=== PATIENT | female | born 1995 | race Caucasian/White ===

== ENCOUNTER 2017-07-17 20:39 | Emergency (ER) | payer MEDICAID, OTHER ==
[~2017-07-17] VITALS: Ht 165.1 cm; Wt 111.5 kg
[~2017-07-17 20:39] MED LIST: BUSP10TA2 PO; IBUP-1542 PO; NITR-58 PO
[2017-07-17 20:48] VITALS: Ht 165.1 cm; Wt 111.5 kg
[2017-07-17] MEDS ORDERED: ONDANSETRON 4 MG INJ IV STA (22:52)
[2017-07-17] MEDS ORDERED: FAMOTIDINE 20 MG TAB PO STA (22:52)
[2017-07-17] MEDS ORDERED: SOD CHLORIDE 0.9% 1,000 ML IV STA (22:52)
[2017-07-17] MEDS ORDERED: ONDANSETRON (ODT) 4 MG TAB ODT STA (23:45)
[2017-07-18] MEDS ORDERED: ONDA-43 PO (00:28)
[2017-07-18] MEDS ORDERED: CEPH-443 PO (00:29)
--- NOTE | 2017-07-18 00:36 | ERD ---
ER Documentation Chief Complaint Chief Complaint AP, N/V DIARRHEA X3 DAYS. HPI This is a 21-year-old female presents to the ER with nausea and nonbilious nonbloody vomiting for the last 3 days. Patient states she had a fever at home , however does not have a fever in the ER. Patient denies any sore throat, cough, cold symptoms. She does admit to some urinary frequency and dysuria. Her last normal menstrual period was July 01, 2017. Patient is sexually active with one partner and uses condoms she is not on control. She denies any possibility of . ROS 12 point review of systems was done, all negative except per HPI. Medications Home Meds Active Scripts Cephalexin* (Keflex*) 500 Mg Capsule, 500 MG PO BID for 7 Days, CAP Prov:WILBUR GARDINER 07/18/17 Ondansetron Hcl* (Zofran*) 4 Mg Tab, 4 MG PO Q4H Y for NAUSEA AND OR VOMITING for 5 Days, TAB Prov:WILBUR GARDINER 07/18/17 Ibuprofen* (Motrin*) 600 Mg Tab, 600 MG PO Q6, #20 TAB Prov:VA DOVER MD 01/17/16 Buspirone Hcl* (Buspirone Hcl*) 10 Mg Tab, 10 MG PO BID for 30 Days, TAB Prov:VA DOVER MD 01/17/16 Nitrofurantoin Monohyd Macrocr* (Macrobid*) 100 Mg Capsr, 100 MG PO BID for 7 Days, CAP Prov:TRINA HAGAN PA-C 10/13/15 Allergies Allergies: Coded Allergies: No Known Allergy (Unverified , 10/08/12) PMhx/Soc Medical and Surgical Hx: pt denies Medical Hx, pt denies Surgical Hx Hx Alcohol Use: No Hx Substance Use: No Hx Tobacco Use: No Smoking Status: Never smoker Physical Exam Vitals Vital Signs Date Time Temp Pulse Resp B/P Pulse Ox O2 Delivery O2 Flow Rate FiO2 07/17/17 20:48 99.8 118 20 117/69 98 Physical Exam GENERAL: The patient is well developed and appropriate for usual state of health , in no apparent distress. HEENT: Atraumatic. CHEST: Clear to auscultation bilaterally. There are no rales, wheezes or rhonchi. HEART: Regular rate and rhythm. No murmurs, clicks, rubs or gallops. ABDOMEN: Soft, nontender and nondistended. Good bowel sounds. No rebound or guarding. No gross peritonitis. No gross organomegaly or masses. No Lopez sign or McBurney point tenderness. BACK: No midline or flank tenderness. No CVA tenderness NEURO: Alert and oriented. SKIN:The skin is warm and dry. Result Diagram: 07/17/17 23407/17/17 234 Results 24 hrs Laboratory Tests Test 07/17/17 23:00 07/17/17 23:40 Urine Color YELLOW Urine Clarity SLIGHTLY CLOUDY Urine pH 5.0 Urine Specific [place] 1.031 Urine Ketones 1+mg/dL Urine Nitrite NEGATIVEmg/dL Urine Bilirubin NEGATIVEmg/dL Urine Urobilinogen 1+mg/dL Urine Leukocyte Esterase 2+Mia/ul Urine Microscopic RBC 16/HPF Urine Microscopic WBC 37/HPF Urine Squamous Epithelial Cells MANY/HPF Urine Mucus MANY/HPF Urine Hemoglobin NEGATIVEmg/dL Urine Glucose NEGATIVEmg/dL Urine Total Protein 1+mg/dl White Blood Count 7.710^3/ul Red Blood Count 4.3610^6/ul Hemoglobin 12.8g/dl Hematocrit 38.7% Mean Corpuscular Volume 88.8fl Mean Corpuscular Hemoglobin 29.4pg Mean Corpuscular Hemoglobin Concent 33.1g/dl Red Cell Distribution Width 13.8% Platelet Count 17979^3/UL Mean Platelet Volume 10.1fl Neutrophils % 70.7% Lymphocytes % 19.6% Monocytes % 8.9% Eosinophils % 0.3% Basophils % 0.1% Nucleated Red Blood Cells % 0.0/100WBC Neutrophils # 5.410^3/ul Lymphocytes # 1.510^3/ul Monocytes # 0.710^3/ul Eosinophils # 0.010^3/ul Basophils # 0.010^3/ul Nucleated Red Blood Cells # 0.010^3/ul Sodium Level 139mmol/L Potassium Level 4.6mmol/L Chloride Level 106mmol/L Carbon Dioxide Level 23mmol/L Anion Gap 15 Blood Urea Nitrogen 11mg/dl Creatinine 0.66mg/dl Glucose Level 87mg/dl Calcium Level 9.0mg/dl Total Bilirubin 0.6mg/dl Direct Bilirubin 0.00mg/dl Indirect Bilirubin 0.6mg/dl Aspartate Amino Transf (AST/SGOT) 45IU/L Alanine Aminotransferase (ALT/SGPT) 28IU/L Alkaline Phosphatase 97IU/L Total Protein 8.4g/dl Albumin 4.1g/dl Globulin 4.30g/dl Albumin/Globulin Ratio 0.95 Lipase 68U/L Current Medications Medications (Trade) Dose Ordered Sig/Marlin Route PRN Reason Start Time Stop Time Status Last Admin Dose Admin Sodium Chloride (NS) 1,000 ml @ 1,000 mls/hr Q1H STAT IV 07/17/17 22:52 07/17/17 23:51 DC Ondansetron HCl (Zofran Inj) 4 mg ONCE STAT IV 07/17/17 22:52 07/17/17 22:53 DC Famotidine (Pepcid) 20 mg ONCE STAT PO 07/17/17 22:52 07/17/17 22:53 DC Ondansetron HCl (Zofran Odt) 4 mg ONCE STAT ODT 07/17/17 23:45 07/17/17 23:46 DC Procedures/MDM Is a 21-year-old female presents to the ER with nausea and vomiting for the last 3 days. Patient did have some urinary frequency and dysuria and she does have a urinary tract infection on urinalysis. Suspicion for pyelonephritis is low she does not have any CVA tenderness on physical examination and she is nontoxic appearing. Patient was given fluids and Zofran in the ER and did not have any episodes of vomiting. She is hemodynamically stable with no significant electrolyte abnormalities. Patient is stable for outpatient follow- up she will be sent home with Keflex and with Zofran. Her urine will be sent for culture. She needs to follow-up with her primary care doctor within 1-2 days or return to ER sooner if symptoms worsen. My medical decision making shared with the patient she understands and agrees with plan. Departure Diagnosis: Primary Impression: Nausea & vomiting Additional Impression: UTI (urinary tract infection) Condition: Stable Patient Instructions: Understanding Urinary Tract Infections (UTIs), Nausea and Vomiting-Adult Additional Instructions: Call your primary care doctor TOMORROW for an appointment during the next 1-2 days.See the doctor sooner or return here if your condition worsens before your appointment time. WILBUR GARDINER Jul 18, 2017 00:36
[2017-07-18 01:17] VITALS: BP 130/66; PULSE 89; RESP 18; TEMP 98.9
== END 2017-07-18 01:19 | disposition home or self-care (01) ==
LOC: FTE 20:39
DX: N39.0 Urinary tract infection, site not specified (principal); R11.2 Nausea with vomiting, unspecified
CPT/HCPCS: 36415; 80053; 81001; 83690; 85025; J7030; Z7502